=== PATIENT | female | born 1980 | race Two or more races ===

== ENCOUNTER 2020-06-15 07:19 | Emergency (ER) | payer OTHER ==
[~2020-06-15] VITALS: Ht 160 cm; Wt 74.8 kg
[2020-06-15] MEDS ORDERED: SINGULAIR10 MG (07:29)
[2020-06-15] MEDS ORDERED: ZYRTEC10 M3 (07:30)
[2020-06-28] MEDS ORDERED: CANABIS MEDICINAL (22:31)
== END 2020-06-15 09:42 | disposition home or self-care (01) ==
LOC: ER 07:19
DX: J45.998 Other asthma (principal); F41.0 Panic disorder [episodic paroxysmal anxiety]; F41.1 Generalized anxiety disorder

== ENCOUNTER 2020-08-14 05:18 | Emergency (ER) | payer OTHER ==
[~2020-08-14] VITALS: Ht 165.1 cm; Wt 73.0 kg
[~2020-08-14 05:18] MED LIST: CANABIS MEDICINAL; SINGULAIR10 MG; ZYRTEC10 M3
[2020-08-14] MEDS ORDERED: PROAIR HFA8.5 GM IH (05:59)
[2020-08-14] MEDS ORDERED: SINGULAIR 10MG10 MG PO (05:59)
[2020-08-14] MEDS ORDERED: ZYRTEC10 MG PO (05:59)
[2020-08-14] MEDS ORDERED: ZYNCOF 20-400120 ML PO ×2 (05:59→06:03)
[2020-08-27] MEDS ORDERED: KETO10TA2 PO (06:47)
== END 2020-08-14 06:18 | disposition home or self-care (01) ==
LOC: ER 05:18
DX: J45.998 Other asthma (principal)

== ENCOUNTER → 2020-08-27 | Emergency (ER) | payer OTHER ==
[~2020-08-27] VITALS: Ht 165.1 cm; Wt 75.3 kg
[~2020-08-27] MED LIST changes: +KETO10TA2 PO; +MUPIROCIN15 GM TOP; +PROAIR HFA8.5 GM IH; +SINGULAIR 10MG10 MG PO; +ZYNCOF 20-400120 ML PO; +ZYRTEC10 MG PO
== END | disposition home or self-care (01) ==
LOC: ER 04:44
DX: S00.83XA Contusion of other part of head, initial encounter (principal); S40.022A Contusion of left upper arm, initial encounter; Y08.89XA Assault by other specified means, initial encounter; Y93.89 Activity, other specified; Y92.098 Other place in other non-institutional residence as the place of occurrence of the external cause; Y99.8 Other external cause status

== ENCOUNTER → 2020-08-29 | Emergency (ER) | payer OTHER | END | disposition left against medical advice (07) | LOC: ER 09:37 | DX: Z53.20 Procedure and treatment not carried out because of patient's decision for unspecified reasons (principal) ==

== ENCOUNTER 2020-09-08 05:10 | Emergency (ER) | payer OTHER ==
[~2020-09-08] VITALS: Ht 165.1 cm; Wt 76.2 kg
[~2020-09-08 05:10] MED LIST changes: -MUPIROCIN15 GM TOP
[2020-09-08] MEDS ORDERED: MUPIROCIN15 GM TOP (05:35)
== END 2020-09-08 05:54 | disposition home or self-care (01) ==
LOC: ER 05:10 → EMR PED 05:11 → ER 05:11
DX: S81.822A Laceration with foreign body, left lower leg, initial encounter (principal); W10.9XXA Fall (on) (from) unspecified stairs and steps, initial encounter; Y93.89 Activity, other specified; Y92.89 Other specified places as the place of occurrence of the external cause; Y99.8 Other external cause status

== ENCOUNTER 2022-01-04 02:44 | Emergency (ER) | payer OTHER ==
[~2022-01-04] VITALS: Ht 165.1 cm; Wt 72.6 kg
[~2022-01-04 02:44] MED LIST changes: +MUPIROCIN15 GM TOP
[2022-01-04] MEDS ORDERED: DOLOGESIC 500-1 EACH PO (06:57)
== END 2022-01-04 07:30 | disposition home or self-care (01) ==
LOC: ER 02:44
DX: F41.9 Anxiety disorder, unspecified (principal); R51.9 Headache, unspecified; R42 Dizziness and giddiness; Z88.6 Allergy status to analgesic agent

== ENCOUNTER 2022-01-05 03:13 | Emergency (ER) | payer OTHER ==
[~2022-01-05] VITALS: Ht 165.1 cm; Wt 70.8 kg
[~2022-01-05 03:13] MED LIST changes: +DOLOGESIC 500-1 EACH PO
== END 2022-01-05 05:49 | disposition home or self-care (01) ==
LOC: ER 03:13
DX: R53.81 Other malaise (principal); T50.B95A Adverse effect of other viral vaccines, initial encounter

== ENCOUNTER 2022-01-09 05:03 | Emergency (ER) | payer OTHER ==
[~2022-01-09] VITALS: Ht 165.1 cm; Wt 66.2 kg
== END 2022-01-09 08:23 | disposition home or self-care (01) ==
LOC: ER 05:03
DX: M25.512 Pain in left shoulder (principal); Z88.8 Allergy status to other drugs, medicaments and biological substances

== ENCOUNTER → 2022-01-10 | Emergency (ER) | payer OTHER ==
[~2022-01-10] VITALS: Ht 162.6 cm; Wt 65.8 kg
== END | disposition home or self-care (01) ==
LOC: ER 21:11
DX: J06.9 Acute upper respiratory infection, unspecified (principal); R53.81 Other malaise; Z88.6 Allergy status to analgesic agent

== ENCOUNTER 2022-08-28 01:54 | Emergency (ER) | payer OTHER ==
[~2022-08-28] VITALS: Ht 165.1 cm; Wt 71.7 kg
[~2022-08-28 01:54] MED LIST changes: +DUI500 PO; +MUPIROCIN1 G1 TOP
[2022-08-28] MEDS ORDERED: [UNRECOGNIZED DRUG - OTHER] TOP ×2 (05:07→05:11)
[2022-08-28] MEDS ORDERED: SINGULAIR10 MG PO ×2 (05:08→05:11)
[2022-08-28] MEDS ORDERED: PROVENTIL HFA6.7 GM IH ×2 (05:08→05:11)
[2022-08-28] MEDS ORDERED: CEPHALEXIN500 MG PO (05:09)
[2022-08-28] MEDS ORDERED: ZYNCOF 20-400120 ML PO ×2 (05:09→05:11)
[2022-08-28] MEDS ORDERED: KETO10TA2 PO (05:09)
== END 2022-08-28 06:49 ==
LOC: ER 01:54
DX: S90.822S Blister (nonthermal), left foot, sequela (principal); Z88.8 Allergy status to other drugs, medicaments and biological substances

== ENCOUNTER 2022-09-01 23:42 | Emergency (ER) | payer OTHER ==
[~2022-09-01] VITALS: Ht 165.1 cm; Wt 71.7 kg
[~2022-09-01 23:42] MED LIST changes: +CEPHALEXIN500 MG PO; +PROVENTIL HFA6.7 GM IH; +SINGULAIR10 MG PO; +[UNRECOGNIZED DRUG - OTHER] TOP
[2022-09-01] MEDS ORDERED: COZAAR25 MG PO (23:56)
[2022-09-02] MEDS ORDERED: ANKLE BRACE1 EACH {1, null} (04:41)
== END 2022-09-02 04:50 ==
LOC: ER 23:42
DX: M79.604 Pain in right leg (principal); M79.605 Pain in left leg

== ENCOUNTER 2022-09-03 20:39 | Emergency (ER) | payer OTHER ==
[~2022-09-03] VITALS: Ht 162.6 cm; Wt 81.6 kg
[~2022-09-03 20:39] MED LIST changes: +ANKLE BRACE1 EACH {1, null}; +COZAAR25 MG PO
[2022-09-04] MEDS ORDERED: SINGULAIR4 MG PO (05:12)
== END 2022-09-03 23:54 | disposition home or self-care (01) ==
LOC: ER 20:39
DX: R53.81 Other malaise (principal); G44.89 Other headache syndrome; F41.9 Anxiety disorder, unspecified; I10 Essential (primary) hypertension; Z88.6 Allergy status to analgesic agent

== ENCOUNTER 2022-09-04 05:02 | Emergency (ER) | payer OTHER ==
[~2022-09-04] VITALS: Ht 165.1 cm; Wt 71.7 kg
[2022-09-04] MEDS ORDERED: SINGULAIR4 MG PO (05:12)
== END 2022-09-04 06:52 | disposition home or self-care (01) ==
LOC: ER 05:02
DX: B35.3 Tinea pedis (principal); Z88.8 Allergy status to other drugs, medicaments and biological substances

== ENCOUNTER 2022-09-05 05:49 | Emergency (ER) | payer OTHER ==
[~2022-09-05] VITALS: Ht 165.1 cm; Wt 71.7 kg
[~2022-09-05 05:49] MED LIST changes: +SINGULAIR4 MG PO
== END 2022-09-05 08:26 | disposition home or self-care (01) ==
LOC: ER 05:49
DX: M79.609 Pain in unspecified limb (principal); I10 Essential (primary) hypertension; Z88.8 Allergy status to other drugs, medicaments and biological substances

== ENCOUNTER 2022-09-07 04:40 | Emergency (ER) | payer OTHER ==
[~2022-09-07] VITALS: Ht 165.1 cm; Wt 68.0 kg
[2022-09-08] MEDS ORDERED: SINGULAIR4 M1 PO (04:28)
== END 2022-09-07 05:50 | disposition home or self-care (01) ==
LOC: ER 04:40
DX: M79.7 Fibromyalgia (principal); R53.81 Other malaise; Z88.6 Allergy status to analgesic agent

== ENCOUNTER 2022-09-08 04:25 | Emergency (ER) | payer OTHER ==
[~2022-09-08] VITALS: Ht 152.4 cm; Wt 73.5 kg
[2022-09-08] MEDS ORDERED: SINGULAIR4 M1 PO (04:28)
== END 2022-09-08 09:51 | disposition home or self-care (01) ==
LOC: ER 04:25
DX: R42 Dizziness and giddiness (principal); Z88.5 Allergy status to narcotic agent; Z88.6 Allergy status to analgesic agent

== ENCOUNTER 2022-09-09 01:03 | Emergency (ER) | payer OTHER ==
[~2022-09-09] VITALS: Ht 165.1 cm; Wt 75.7 kg
[~2022-09-09 01:03] MED LIST changes: +SINGULAIR4 M1 PO
[2022-09-10] MEDS ORDERED: SINGULAIR10 MG (06:05)
[2022-09-10] MEDS ORDERED: CLARITIN10 M1 (06:06)
== END 2022-09-09 04:30 | disposition home or self-care (01) ==
LOC: ER 01:03
DX: G44.209 Tension-type headache, unspecified, not intractable (principal); Z88.8 Allergy status to other drugs, medicaments and biological substances

== ENCOUNTER 2022-09-10 05:35 | Emergency (ER) | payer OTHER ==
[~2022-09-10] VITALS: Ht 165.1 cm; Wt 74.8 kg
[2022-09-10] MEDS ORDERED: SINGULAIR10 MG (06:05)
[2022-09-10] MEDS ORDERED: CLARITIN10 M1 (06:06)
== END 2022-09-10 07:45 | disposition home or self-care (01) ==
LOC: ER 05:35
DX: G44.209 Tension-type headache, unspecified, not intractable (principal); Z88.8 Allergy status to other drugs, medicaments and biological substances

== ENCOUNTER 2022-09-11 06:30 | Emergency (ER) | payer OTHER ==
[~2022-09-11] VITALS: Ht 162.6 cm; Wt 74.8 kg
[~2022-09-11 06:30] MED LIST changes: +CLARITIN10 M1
== END 2022-09-11 09:04 | disposition home or self-care (01) ==
LOC: ER 06:30
DX: F41.9 Anxiety disorder, unspecified (principal)

== ENCOUNTER 2022-09-12 07:43 | Emergency (ER) | payer OTHER ==
[~2022-09-12] VITALS: Ht 165.1 cm; Wt 70.3 kg
== END 2022-09-12 11:11 | disposition left against medical advice (07) ==
LOC: ER 07:43
DX: Z53.21 Procedure and treatment not carried out due to patient leaving prior to being seen by health care provider (principal)

== ENCOUNTER 2022-09-15 03:00 | Emergency (ER) | payer OTHER ==
[~2022-09-15] VITALS: Ht 165.1 cm; Wt 70.3 kg
== END 2022-09-15 10:39 | disposition home or self-care (01) ==
LOC: ER 03:00
DX: J45.909 Unspecified asthma, uncomplicated (principal); R06.02 Shortness of breath; R53.81 Other malaise; Z88.8 Allergy status to other drugs, medicaments and biological substances; Z88.6 Allergy status to analgesic agent

== ENCOUNTER 2022-09-17 01:44 | Emergency (ER) | payer OTHER ==
[~2022-09-17] VITALS: Ht 165.1 cm; Wt 72.6 kg
== END 2022-09-17 04:38 | disposition home or self-care (01) ==
LOC: ER 01:44
DX: M62.830 Muscle spasm of back (principal)

== ENCOUNTER 2022-09-26 03:58 | Emergency (ER) | payer OTHER ==
[~2022-09-26] VITALS: Ht 165.1 cm; Wt 70.8 kg
== END 2022-09-26 04:55 | disposition home or self-care (01) ==
LOC: ER 03:58
DX: R51.9 Headache, unspecified (principal)

== ENCOUNTER 2022-09-26 09:30 | Emergency (ER) | payer OTHER ==
[~2022-09-26] VITALS: Ht 165.1 cm; Wt 68.0 kg
== END 2022-09-26 11:59 | disposition home or self-care (01) ==
LOC: ER 09:30
DX: O26.891 Other specified pregnancy related conditions, first trimester (principal); R51.9 Headache, unspecified

== ENCOUNTER 2022-09-28 03:15 | Emergency (ER) | payer OTHER ==
[~2022-09-28] VITALS: Ht 167.6 cm; Wt 74.8 kg
== END 2022-09-28 04:13 | disposition home or self-care (01) ==
LOC: ER 03:15
DX: G62.9 Polyneuropathy, unspecified (principal); I10 Essential (primary) hypertension; Z88.8 Allergy status to other drugs, medicaments and biological substances